=== PATIENT | female | born 1935 | race Caucasian/White ===

== ENCOUNTER 2020-03-19 20:59 | Emergency (ER) | payer OTHER ==
[~2020-03-19] VITALS: Ht 154.9 cm; Wt 74.8 kg
[2020-03-19] MEDS ORDERED: CARV25 PO (21:46)
[2020-03-19] MEDS ORDERED: BUPR150ER PO (21:46)
[2020-03-19] MEDS ORDERED: GABA300 PO (21:46)
[2020-03-19] MEDS ORDERED: TRIA50 PO (21:47)
[2020-03-19] MEDS ORDERED: ZOCOR20 MG PO (21:47)
[2020-03-19] MEDS ORDERED: Aspir 8181 MG PO (21:48)
[2020-03-19] MEDS ORDERED: HYDCHL25 PO (21:48)
[2020-03-19 22:18] LABS: BASOPHILS ABSOLUTE AUTO 0.07 K/mm3 (0.00-0.23); BASOPHILS PERCENT AUTO 1 % (0-2); EOSINOPHILS ABSOLUTE AUTO 0.31 K/mm3 (0.00-0.68); EOSINOPHILS PERCENT AUTO 5 % (0-6); Hematocrit 42.2 % (33.0-51.0); Hemoglobin 13.5 g/dL (11.5-16.0); IMMATURE GRAN ABSOLUTE AUTO 0.03 K/mm3 (0.00-0.10); IMMATURE GRAN PERCENT AUTO 0 % (0-1); LYMPHOCYTES ABSOLUTE AUTO 1.61 K/mm3 (0.84-5.20); LYMPHOCYTES PERCENT AUTO 23 % (21-46); MONOCYTES ABSOLUTE AUTO 0.69 K/mm3 (0.16-1.47); MONOCYTES PERCENT AUTO 10 % (4-13); Mean Corpuscular HGB 30.1 pg (26.0-34.0); Mean Corpuscular Volume 94 fL (80-100); Mean Platelet Volume 12.2 fL (9.1-12.4); NEUTROPHILS PERCENT AUTO 61 % (41-73); Platelet Count 162 K/mm3 (150-400); RDW Coefficient Variation 13.2 % (11.7-14.2); RDW Standard Deviation 46.1 fL (35.1-46.3); Red Blood Cell Count 4.48 M/mm3 (3.80-5.20); White Blood Cell Count 6.91 K/mm3 (4.00-11.30)
[2020-03-19 22:39] LABS: Alanine Aminotransfer (ALT/SGP 22 U/L (12-78); Albumin, Blood 3.5 g/dL (3.4-5.0); Albumin/Globulin Ratio 1.2 (0.8-1.8); Alk Phos 166 U/L (50-136); Anion Gap 6 mmol/L (6-16); Aspartate Aminotrans (AST/SGOT 12 U/L (12-37); Bilirubin, Total 0.1 mg/dL (0.1-1.0); Blood Urea Nitrogen 16 mg/dL (8-24); Bun/Creatinine Ratio 18.7 (12.0-20.0); CO2, Blood 26 mmol/L (21-32); Calcium, Blood 8.6 mg/dL (8.5-10.1); Chloride, Blood 112 mmol/L (98-108); Creatinine, Blood 0.85 mg/dL (0.40-1.00); Glomerular Filtration Rate >60 (60-); Glucose, Blood 177 mg/dL (70-99); Magnesium, Blood 2.2 mg/dL (1.6-2.4); Potassium, Blood 3.8 mmol/L (3.5-5.5); Sodium, Blood 144 mmol/L (136-145); Total Protein, Blood 6.5 g/dL (6.4-8.2); Troponin I <0.015 ng/mL (0.000-0.040)
== END 2020-03-19 23:38 | disposition home or self-care (01) ==
LOC: ER 20:59
PROVIDERS: Emergency Medicine
DX: R55 Syncope and collapse (principal); E78.5 Hyperlipidemia, unspecified; Z79.899 Other long term (current) drug therapy; Z79.82 Long term (current) use of aspirin
CPT/HCPCS: 36415; 80053; 83735; 84484; 85025; 93005; 93010; 99284-25

== ENCOUNTER 2020-04-15 08:41 | Day surgery (SDC) | payer OTHER ==
[~2020-04-15] VITALS: Ht 154.9 cm; Wt 80.3 kg
[~2020-04-15 08:41] MED LIST: Aspir 8181 MG PO; BUPR150ER PO; CARV25 PO; Dyazide 37.5/251 EA PO; GABA300 PO; GINKGO60 MG PO; GLUC500 PO; HYDCHL25 PO; MAGNESIUM OXID500 MG PO; ZOCOR20 MG PO
--- NOTE | 2020-04-15 18:35 | NUR ---
SHIFT SUMMARY PT ADMITTED TODAY EXTENDED RECOVERY FOR PACER PLACEMENT. TELEMETRY SHOW'S PT TO BE FREQUENTLY A-PACED. VITALS INITIALLY WERE SOFT IN THE 90'S WITH A MAP >65 AFTER PROCEDURE, ONCE PT WAS FULLY AWAKE, SBP IMPROVED TO 110'S. OTHER VITALS HAVE REMAINED STABLE. DRESSING TO LEFT CHEST IS C/D/I, AND SLING IN PLACE TO LEFT ARM. 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 PAIN IS WELL CONTROLLED WITH PRN MEDS, SEE EMAR FOR DOCUMENTATION.
--- NOTE | 2020-04-16 06:22 | NUR ---
SHIFT SUMMARY PT ALERT & ORIENTED TO SELF; CONFUSED; EDUCATED ON NEED TO NOT USE L ARM; SLING IN PLACE; DRESSING HAS SCANT AMOUNT DRIED BLOOD; NO ACUTE CHANGES; NSR BASELINE NOTED ON TELE W/ SOME PACER SPIKES; O2 SATS >94 ON RA W/BIOX ON SECOND DIGIT L HAND; SBA TO BATHROOM NO GAIT DISTURBANCES NOTED; EDUCATED ON USE OF CALL LIGHT; CALL LIGHT IN REACH; BED IN LOWEST POSITION; BED ALARM ON; WILL CONTINUE TO MONITOR CLOSELY UNTIL HAND OFF TO DAY SHIFT RN.
--- NOTE | 2020-04-16 08:43 | NUR ---
AM NOTE.... ASSUMED CARE OF PT APROX 0700. PT IS A&Ox4 AND SBA/IND IN THE ROOM. PT IS S/P PACEMAKER PLACEMENT. DRESSING IS C/D/I AND PT IS PLANNED TO D/C HOME TODAY. VS STABLE, PT DENIES PAIN AT THIS TIME. L/S CLEAR T/O DIM IN THE BASES. NO EDEMA NOTED ON ASSESSMENT. BT PRESENT AND NORMOACTIVE ABD SOFT AND NONTENDER TO PALP. DISCHARGE EDUCATION WAS GONE OVER WITH THE PT, PT VERBALIZED UNDERSTANDING.
== END 2020-04-16 09:25 | disposition home or self-care (01) ==
LOC: MHTC 08:41 → PCU 11:47 → MHTC 04-16 09:25
DX: I49.5 Sick sinus syndrome (principal); I10 Essential (primary) hypertension; I47.1 Supraventricular tachycardia; E78.5 Hyperlipidemia, unspecified; Z79.899 Other long term (current) drug therapy; Z88.0 Allergy status to penicillin
CPT/HCPCS: 33208; 71045; 71046; 76937; 99152; 99153; A9270-GY; C1785; C1894; C1898; J1644; J2250; J3010; J3370; J7040

== ENCOUNTER 2020-05-05 11:46 | Emergency (ER) | payer OTHER ==
[~2020-05-05] VITALS: Ht 154.9 cm; Wt 75.3 kg
== END 2020-05-05 12:18 | disposition home or self-care (01) ==
LOC: ER 11:46
DX: Z45.018 Encounter for adjustment and management of other part of cardiac pacemaker (principal); I47.1 Supraventricular tachycardia; E78.5 Hyperlipidemia, unspecified; Z88.0 Allergy status to penicillin; Z79.82 Long term (current) use of aspirin; Z79.899 Other long term (current) drug therapy
CPT/HCPCS: 93005; 93010; 99283-25

== ENCOUNTER → 2020-09-25 | Outpatient (CLI) | payer OTHER ==
[~2020-09-25] MED LIST changes: +BUPROPION XL150 M1 PO; +COLCHICINE0.6 MG PO; +INDO50 PO
== END | disposition home or self-care (01) ==
LOC: LAB 19:10 → LAB SHORT 19:10
DX: R53.83 Other fatigue (principal)
CPT/HCPCS: 87077; 87086; 87186

== ENCOUNTER → 2022-09-30 | Outpatient (CLI) | payer OTHER ==
[2022-09-30 15:56] LABS: Digoxin (Lanoxin) 0.91 ug/mL (0.80-2.00)
[2022-09-30 15:57] LABS: Anion Gap 6 mmol/L (6-16); Blood Urea Nitrogen 21 mg/dL (8-24); Bun/Creatinine Ratio 27.2 (12.0-20.0); CO2, Blood 27 mmol/L (21-32); Calcium, Blood 9.4 mg/dL (8.5-10.1); Chloride, Blood 107 mmol/L (98-108); Creatinine, Blood 0.77 mg/dL (0.40-1.00); Glomerular Filtration Rate 75 (60-); Glucose, Blood 138 mg/dL (70-99); Potassium, Blood 3.6 mmol/L (3.5-5.5); Sodium, Blood 140 mmol/L (136-145)
== END | disposition home or self-care (01) ==
LOC: LAB SHORT 13:39 → LAB 13:39
PROVIDERS: Internal Medicine
DX: I10 Essential (primary) hypertension (principal); E11.9 Type 2 diabetes mellitus without complications; I47.1 Supraventricular tachycardia; Z95.0 Presence of cardiac pacemaker
CPT/HCPCS: 80048; 80162; 83036

== ENCOUNTER 2023-11-12 14:57 | Emergency (ER) | payer OTHER ==
[~2023-11-12] VITALS: Ht 154.9 cm; Wt 65.8 kg
[2023-11-12 15:06] VITALS: BP 152/65
[2023-11-12] MEDS ORDERED: Cleocin HCl150 MG PO (15:58)
== END 2023-11-12 16:17 | disposition home or self-care (01) ==
LOC: ER 14:57
DX: K08.89 Other specified disorders of teeth and supporting structures (principal); E78.5 Hyperlipidemia, unspecified; Z87.891 Personal history of nicotine dependence; Z98.890 Other specified postprocedural states; Z88.0 Allergy status to penicillin; Z79.899 Other long term (current) drug therapy; Z79.82 Long term (current) use of aspirin
CPT/HCPCS: 96372; 99282-25; A9270; J1885

== ENCOUNTER 2025-01-23 17:22 | Emergency (ER) | payer OTHER ==
[~2025-01-23] VITALS: Ht 154.9 cm; Wt 65.8 kg
[~2025-01-23 17:22] MED LIST changes: +Cleocin HCl150 MG PO
[2025-01-23 18:13] LABS: BASOPHILS ABSOLUTE AUTO 0.11 K/mm3 (0.00-0.23); BASOPHILS PERCENT AUTO 1 % (0-2); EOSINOPHILS ABSOLUTE AUTO 0.49 K/mm3 (0.00-0.68); EOSINOPHILS PERCENT AUTO 6 % (0-6); Hematocrit 41.9 % (33.0-51.0); Hemoglobin 14.3 g/dL (11.5-16.0); IMMATURE GRAN ABSOLUTE AUTO 0.07 K/mm3 (0.00-0.10); IMMATURE GRAN PERCENT AUTO 1 % (0-1); LYMPHOCYTES ABSOLUTE AUTO 2.06 K/mm3 (0.84-5.20); LYMPHOCYTES PERCENT AUTO 24 % (21-46); MONOCYTES PERCENT AUTO 10 % (4-13); Mean Corpuscular HGB 30.6 pg (26.0-34.0); Mean Corpuscular HGB Conc 34.1 g/dL (31.5-36.5); Mean Corpuscular Volume 90 fL (80-100); Mean Platelet Volume 10.4 fL (9.1-12.4); NEUTROPHILS ABSOLUTE AUTO 5.11 K/mm3 (1.96-9.15); NEUTROPHILS PERCENT AUTO 58 % (41-73); Platelet Count 222 K/mm3 (150-400); RDW Coefficient Variation 13.5 % (11.7-14.2); RDW Standard Deviation 44.4 fL (35.1-46.3); Red Blood Cell Count 4.67 M/mm3 (3.80-5.20); White Blood Cell Count 8.74 K/mm3 (4.00-11.30)
[2025-01-23 18:42] LABS: Albumin, Blood 3.8 g/dL (3.4-5.0); Albumin/Globulin Ratio 1.3 (0.8-1.8); Bilirubin, Total 0.5 mg/dL (0.1-1.0); Bun/Creatinine Ratio 23.1 (12.0-20.0); Calcium, Blood 9.8 mg/dL (8.5-10.1); Creatinine, Blood 0.82 mg/dL (0.40-1.00); Globulin, Blood 2.9 g/dL (2.2-4.0); Potassium, Blood 3.7 mmol/L (3.5-5.5); Total Protein, Blood 6.7 g/dL (6.4-8.2)
[2025-01-23 21:35] VITALS: BP 134/55
== END 2025-01-23 21:40 | disposition home or self-care (01) ==
LOC: ER 17:22
PROVIDERS: Student in an Organized Health Care Education/Training Program
DX: R06.02 Shortness of breath (principal); E78.5 Hyperlipidemia, unspecified; Z79.82 Long term (current) use of aspirin; Z79.899 Other long term (current) drug therapy; Z88.0 Allergy status to penicillin
CPT/HCPCS: 71046; 80053; 83880; 84484; 85025; 85379; 99285-25

== ENCOUNTER 2025-04-07 14:34 | Emergency (ER) | payer OTHER ==
[~2025-04-07] VITALS: Ht 162.6 cm; Wt 68.0 kg
[2025-04-07] MEDS ORDERED: Acetaminophen 500 MG Tab PO ONE (14:50)
[2025-04-07 17:00] VITALS: BP 122/72
== END 2025-04-07 17:18 | disposition home or self-care (01) ==
LOC: ER 14:34
DX: R51.9 Headache, unspecified (principal); F07.81 Postconcussional syndrome; E78.5 Hyperlipidemia, unspecified; Z88.0 Allergy status to penicillin; Z79.82 Long term (current) use of aspirin; Z79.899 Other long term (current) drug therapy; Z95.0 Presence of cardiac pacemaker
CPT/HCPCS: 70450; 99284-25; A9270